=== PATIENT | female | born 1935 | race Asian ===

== ENCOUNTER 2017-01-02 11:43 | Emergency (ER) | payer MEDICARE, OTHER ==
[~2017-01-02] VITALS: Ht 154.9 cm; Wt 63.5 kg
[2017-01-02] MEDS ORDERED: ACETAMINOPHEN-1 EAC1 ORAL (14:26)
[2017-01-02] MEDS ORDERED: Tylenol #3 tab (300mg/30mg) ORAL ONE (14:30)
[2017-01-02 14:43] VITALS: BP 130/80
--- NOTE | 2017-01-02 21:59 | Emergency Room Report ---
History of Present Illness General Chief Complaint: Lower Extremity Injury Source: Family Member, EMS (SATINDER COLLINS) Present Illness HPI The pt is an 81 yo F presenting for R knee pain which occurred today after a fall. The pt was walking and experienced a mechanical fall onto the knee. The pt denies hitting her head or LOC. The pain is described as a 10/10 dull ache to the R knee and Does not radiate. She denies prior injury to the knee. She has not tried any medications yet. She states she is unable to bear any weight onto the right leg. She denies any other symptoms including numbness or tingling of the leg Interpretation was provided by patient's family member grandson. (SATINDER COLLINS) Allergies: Coded Allergies: No Known Allergies (Unverified , 01/02/17) Patient History Past Medical History: see triage record Pertinent Family History: none Now: No Reviewed Nursing Documentation: PMH: Agreed, PSxH: Agreed (SATINDER COLLINS) Nursing Documentation-PMH Past Medical History: No Stated History (SATINDER COLLINS P.Kike) Review of Systems All Other Systems: negative except mentioned in HPI (SATINDER COLLINS P.Kike) Physical Exam Vital Signs Date Time Temp Pulse Resp B/P Pulse Ox O2 Delivery O2 Flow Rate FiO2 01/02/17 11:36 97.5 68 16 136/72 100 Room Air Sp02 EP Interpretation: reviewed, normal General Appearance: no apparent distress, alert, GCS 15, non-toxic Head: normocephalic, atraumatic Eyes: bilateral eye PERRL, bilateral eye normal inspection ENT: hearing grossly normal, normal pharynx, no angioedema, normal voice Musculoskeletal: back normal, no calf tenderness, decreased range of motion - unable to fully extend, swelling, tender - Diffuse TTP of R knee Neurologic: alert, oriented x3, responsive, motor strength/tone normal, sensory intact, speech normal Psychiatric: judgement/insight normal, memory normal, mood/affect normal, no suicidal/homicidal ideation Skin: warm/dry, well hydrated Lymphatic: no adenopathy (SATINDER COLLINS) Procedures Splinting Splinting : Consent: Verbal Location: R knee Pre-Made Type: knee immobilizer Pre-Proc Neuro Vasc Exam: normal Post-Proc Neuro Vasc Exam: normal Patient Tolerated: Well Complications: None (SATINDER COLLINS) Medical Decision Making PA Attestation Dr. Campoverde is my supervising physician. Patient management was discussed with my supervising physician (SATINDER COLLINS) Medicare Attestation The history of Donna Almazan has been reviewed and management options for her have been examined and discussed by Moise Campoverde. I have personally examined and interviewed the patient. (MOISE CAMPOVERDE M.D.) Diagnostic Impression: Primary Impression: Patellar fracture Qualified Codes: S82.001A - Unspecified fracture of right patella, initial encounter for closed fracture ER Course The pt is an 81 yo F presenting for R knee pain which occurred today after a fall. Ddx considered include but not limited to sprain/strain, fracture, contusion PE: R knee is edematous. Diffuse TTP. Limited AROM with extension. Unable to fully assess laxity due to pain. Unable to bear weight onto R leg due to knee pain. R knee xray shows patellar fracture. R knee immobilizer is placed on R leg and pt is given crutches. Dr. Campoverde has spoken with Dr. Mesa who will see the patient on an outpatient basis. The patient is given a referral to see Dr. Mesa The patient is given a prescription for Tylenol #3 and will followup as discussed. ER precautions are given (SATINDER COLLINS) Other X-Ray Diagnostic Results Other X-Ray Diagnostic Results : X-Ray Ordered: R knee Date: Jan 02, 2017 EP Interpretation: Yes Findings: no dislocation, other - patellar fracture Number of Views: 3 PA Scribe Text I am acting as scribe for my supervising physician. 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 All questions and concerns have been answered. Treatment and medication compliance have been addressed. I advised the patient that they need to follow up with PMD in 3-5 days. Return to ED if pain remains or worsens, numbness or tingling occurs, new rash is noticed, fever is noticed, or if needed for any reason. Patient verbalized understanding of discharge instructions. The patient was given information to followup with orthopedics in 7-10 days. Referral is given. SATINDER COLLINS Jan 02, 2017 21:59 MOISE CAMPOVERDE M.D. Jan 10, 2017 14:03
== END 2017-01-02 14:43 | disposition home or self-care (01) ==
LOC: EDBD 11:43 → EMR 14:21
DX: S82.001A Unspecified fracture of right patella, initial encounter for closed fracture (principal); W19.XXXA Unspecified fall, initial encounter; Y92.9 Unspecified place or not applicable
CPT/HCPCS: 29530; 99283